=== PATIENT | female | born 1950 | race Caucasian/White ===

== ENCOUNTER → 2018-03-02 11:10 | Outpatient (CLI) | payer OTHER, SELFPAY ==
[2018-03-02 12:39] LABS: Add Manual Diff / Slide Review NO; Basophils Percent Auto 0.8 % (0-2); Eosinophils Percent Auto 2.1 % (2-4); Hematocrit 39.4 % (36-46); Hemoglobin 13.5 g/dL (12.0-16.0); Lymphocytes Percent Auto 35.5 % (25-40); Mean Corpuscular HGB Conc 34.3 % (30-36); Mean Corpuscular Hemoglobin 29.8 PG (26-34); Monocytes Percent Auto 8.6 % (3-14); Neutrophils Absolute Auto 2300 /uL (3000-5900); Platelet Count 186 X10^3/uL (150-400); Red Blood Cell Count 4.53 X10^6/uL (4.0-5.2); Red Cell Distribution Width 13.1 % (11.6-14.8); White Blood Cell Count 4.4 X10^3/uL (4.5-11.0)
[2018-03-02 13:01] LABS: Alanine Aminotransferase 26 IU/L (9-52); Albumin 4.3 g/dL (3.5-5.0); Albumin Globulin Ratio 1.6 (1.0-2.8); Alkaline Phosphatase 147 U/L (38-126); Aspartate Aminotransferase 28 IU/L (14-36); Bilirubin Total 0.5 mg/dL (0.2-1.3); Blood Urea Nitrogen 14 mg/dL (7-17); Calcium 9.4 mg/dL (8.4-10.2); Carbon Dioxide 29 mmol/L (22-32); Chloride 102 mmol/L (98-107); Cholesterol 193 mg/dL (140-199); Estimated Glomerular Filt Rate > 60.0 mL/min (>60); Globulin 2.7 g/dL (1.7-4.1); Glucose 93 mg/dL (80-110); HDL Cholesterol 84 mg/dL (40-60); HEMOLYSIS < 15 (0-50); LDL Cholesterol Calculated 99 mg/dL (<100); Potassium 4.4 mmol/L (3.4-5.1); Sodium 142 mmol/L (137-145); Triglycerides 52 mg/dL (35-150)
== END ==
PROVIDERS: PCP Family Medicine; Visit Provider Student in an Organized Health Care Education/Training Program
DX: E78.00 Pure hypercholesterolemia, unspecified (principal)
CPT/HCPCS: 36415; 80053; 80061; 85025

== ENCOUNTER → 2018-05-21 14:00 | Outpatient (CLI) | payer OTHER, SELFPAY ==
--- NOTE | 2018-05-21 | DI.MG.S_ITS ---
BILATERAL DIGITAL DIAGNOSTIC MAMMOGRAM 3D/2D: 05/21/2018 CLINICAL: Left lump. Comparison is made [facility] There are scattered fibroglandular elements in both breasts. There are two triangular markers overlying the upper outer left breast at the site of the reported palpable concerns, one at posterior depth and the other at anterior to middle depth. Underlying the posterior depth triangular marker is an approximately 1 cm oval indistinct mass and underlying the anterior to middle depth is an approximately 2 cm irregular spiculated mass. IMPRESSION: INCOMPLETE: NEEDS ADDITIONAL IMAGING EVALUATION Two masses identified in the upper outer left breast as described above. A targeted ultrasound with left axillary ultrasound is recommended for further evaluation. This exam was interpreted at Station ID: [id number]. NOTE: For mammograms, a report in lay terms will be sent to the patient. Approximately 15% of breast malignancies will not be visualized mammographically. In the management of a palpable breast mass, a negative mammogram must not discourage biopsy of a clinically suspicious lesion. Electronically Signed By: Ken Tineo M.D. ecl/:05/21/2018 14:59:44 letter sent: Additional Imaging Needed ACR BI-RADS Category 0: Incomplete [id number]
--- NOTE | 2018-05-21 | DI.US.S_ITS ---
LIMITED ULTRASOUND OF LEFT BREAST AND AXILLA: 05/21/2018 CLINICAL: Patient returns for additional imaging over a suspected mass in the left breast. Comparison is made to exams dated: 05/21/2018 mammogram and 09/20/2009 mammogram - [facility]. Real-time and Doppler ultrasound of the left breast upper outer quadrant and axilla regions were performed. Mccurdy scale images of the real-time examination were reviewed. There is 1.8 cm x 1.1 cm x 2 cm irregular mass with an indistinct margin in the left breast at 1 o'clock 3 cm from the nipple. This irregular mass is hypoechoic with posterior acoustic shadowing. This correlates with mammography findings. Color flow imaging demonstrates that there is increased vascularity. There also is 1.1 cm x 0.7 cm x 1 cm irregular mass with an indistinct margin in the left breast at 2 o'clock 7 cm from the nipple. This irregular mass is hypoechoic with posterior acoustic shadowing. This correlates with mammography findings. Color flow imaging demonstrates that there is vascularity present. Additionally, there is 1.1 cm x 1 cm x 0.9 cm oval mass with a circumscribed margin in the left axilla. This oval mass is hypoechoic. Color flow imaging demonstrates that there is increased vascularity. IMPRESSION: HIGHLY SUGGESTIVE OF MALIGNANCY 1) The 1.8 cm x 1.1 cm x 2 cm irregular mass in the left breast at 1 o'clock is highly suggestive of malignancy. An ultrasound guided biopsy is recommended. 2) The 1.1 cm x 0.7 cm x 1 cm irregular mass in the left breast at 2 o'clock is highly suggestive of malignancy. An ultrasound guided biopsy is recommended. 3) The 1.1 cm x 1 cm x 0.9 cm oval mass in the left axilla is highly suggestive of malignancy. An ultrasound guided biopsy is recommended. These results and recommendations were discussed with the patient at the time of the exam by the [facility] Radiologist Dr. Abiodun Meza in person. This exam was interpreted at Station ID: [id number]. Electronically Signed By: Ken Tineo M.D. ecl/:05/21/2018 15:41:32 letter sent: Biopsy Required Ultrasound BI-RADS: 5 Highly suggestive of malignancy
== END ==
PROVIDERS: PCP Student in an Organized Health Care Education/Training Program; Visit Provider Student in an Organized Health Care Education/Training Program
DX: R92.8 Other abnormal and inconclusive findings on diagnostic imaging of breast (principal); N63.21 Unspecified lump in the left breast, upper outer quadrant; N63.32 Unspecified lump in axillary tail of the left breast
CPT/HCPCS: 76642; 77066; G0279

== ENCOUNTER → 2018-06-16 13:14 | Outpatient (CLI) | payer OTHER, SELFPAY ==
--- NOTE | 2018-06-16 | DI.US.S_ITS ---
ULTRASOUND GUIDED BIOPSY LEFT BREAST WITH MARKING DEVICE INSERTED AND POST MAMMOGRAPHIC IMAGIN06/16/2018 CLINICAL: Left axillary node biopsy. PATIENT CONSENT: Risks (minor bleeding, infection, vasovagal reaction and repeat procedure), benefits and alternatives were explained to the patient and written informed consent was obtained. Correlation is made to exams dated: 05/21/2018 ultrasound, 05/21/2018 mammogram, and 09/20/2009 mammogram - [facility]. An ultrasound guided biopsy using real-time ultrasound was performed for the concerning 1.2 cm x 3.5 cm x 2.4 cm circumscribed lobulated lymph node located in the left axillary tail. The skin was prepped in the usual manner. Local anesthetic was administered to the access site. A skin arlette was made in the breast. The abnormality was approached from the caudocranial aspect. An 18 gauge biopsy needle was placed adjacent to the abnormality through an introducer device under ultrasound guidance. Once the needle was documented to be in the correct location, three specimens were obtained using 18G Temno. The patient received additional local anesthetic during the procedure. A Vision marker clip was inserted into the biopsy cavity. A sterile dressing was applied to the access site. Post procedure mammographic imaging demonstrates the location device at the targeted area. The specimens were sent to the laboratory for pathological analysis. IMPRESSION: ULTRASOUND GUIDED BIOPSY MALIGNANT Ultrasound guided biopsy of the 1.2 cm x 3.5 cm x 2.4 cm lymph node in the left axillary tail/low axilla was successful. This mass appears to represent a tumor infiltrated lymphnode, and is bilobed and larger than the rounded 1 cm node previously found by US and mammogram. It is higher in position, and could not be located by the post biopsy mammogram due to patient's thin body habitus. This larger lesion was chosen because it clearly is axillary in position. The position of the mass and its internal Vision marker was confirmed by US again after it could not be seen by mammogram. CT scanning would allow its visualization related to the other left breast masses in the upper outer quadrant. Biopsy results are consistent with metastatic invasive ductal carcinoma. This is concordant with ultrasound and mammographic findings. Surgical and oncological consultation recommended. This exam was interpreted at Station ID: [id number]. Kain Decker M.D. [facility],popeye/:06/23/2018 10:14:25
--- NOTE | 2018-06-16 | DI.US.S_ITS ---
MULTIPLE ULTRASOUND GUIDED BIOPSIES LEFT BREAST USING VACUUM DEVICE WITH MARKING DEVICES INSERTED AND POST MAMMOGRAPHIC IMAGIN06/16/2018 CLINICAL: Left breast masses x 2: #1 2:00 position 7cm fn #2 1:00 position 3cm fn. PATIENT CONSENT: Risks (minor bleeding, infection, vasovagal reaction and repeat procedure), benefits and alternatives were explained to the patient and written informed consent was obtained. Correlation is made to exams dated: 05/21/2018 ultrasound, 05/21/2018 mammogram, and 09/20/2009 mammogram - [facility]. An ultrasound guided biopsy using real-time ultrasound was performed for the concerning 1 cm x 1.1 cm x 0.6 cm spiculated irregular shaped solid mass located in the left breast at 2 o'clock anterior depth. This was described on the previous mammography and ultrasound reports. The skin was prepped in the usual manner. Local anesthetic was administered to the access site. A skin arlette was made in the breast. The abnormality was approached from the lateral aspect. A 13 gauge biopsy needle was placed adjacent to the abnormality through an introducer device under ultrasound guidance. Once the needle was documented to be in the correct location, 4 specimens were obtained using the Mammotome biopsy system. The patient received additional local anesthetic during the procedure. A single Celero clip was inserted into the biopsy cavity. A skin closure strip was applied to the access site. Post procedure mammographic imaging demonstrates the location device at the targeted area and partial removal of the abnormality. The specimen was sent to the laboratory for pathological analysis as #1. A second ultrasound guided biopsy using real-time ultrasound was performed for the concerning 2 cm x 1.8 cm x 1.1 cm spiculated irregular shaped mass located in the left breast at 1 o'clock middle depth. This was described on the previous mammography and ultrasound reports. The skin was prepped in the usual manner. Local anesthetic was administered to the access site. A skin arlette was made in the breast. The abnormality was approached from the lateral aspect. A 13 gauge biopsy needle was placed adjacent to the abnormality through an introducer device under ultrasound guidance. Once the needle was documented to be in the correct location, four specimens were obtained using the Mammotome biopsy system. The patient received additional local anesthetic during the procedure. A Vision clip was inserted into the biopsy cavity. A skin closure strip was applied to the access site. Post procedure mammographic imaging demonstrates partial removal of the abnormality and the Vision clip to be in expected position. The specimens were sent to the laboratory for pathological analysis as #2. IMPRESSION: ULTRASOUND GUIDED BIOPSY MALIGNANT An approach to biopsy the two lesions from the lateral left breast was chosen with use of a single introducer needle through which the two mammotome 13G vacuum assist devices could be passed, sequentially. The first biopsy was of the more lateral lesion, labeled as #1, and this is the smaller of the two, receiving the Celero marker. The second deeper biopsy was more superior and medial, larger, and received the Vision marker. Ultrasound guided biopsy #1 of the 1 cm x 1.1 cm x 0.6 cm solid mass in the left breast at 2 o'clock anterior depth was performed, and placement of the single Celero marker was successful. 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 Findings are concordant with ultrasound and mammography. Ultrasound guided biopsy #2 of the 2 cm x 1.8 cm x 1.1 cm mass in the left breast at 1 o'clock middle depth was successful, with placement of the Vision marker clip. 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 Findings are concordant with ultrasound and mammography. This exam was interpreted at Station ID: [id number]. Kain davila,popeye/:06/23/2018 10:18:13
--- NOTE | 2018-06-16 | DI.MG.S_ITS ---
UNILATERAL LEFT DIGITAL DIAGNOSTIC MAMMOGRAM POST-NEEDLE BIOPSY: 06/16/2018 CLINICAL: Post clip placement. Comparison is made to exams dated: 05/21/2018 ultrasound, 05/21/2018 mammogram, and 09/20/2009 mammogram - [facility]. There are scattered fibroglandular elements in left breast. The post biopsy marker for the more lateral smaller 2:00 position biopsied mass termed #1 is a Celero type, and is in expected potition. the post biopsy marker for the more medial higher larger 1: position biopsied mass termed #2 is a Vision type, and is in expected position. The post biopsy marker for the large axillary malignant appearing lymphnode is a Vision type, and could not be included in the mammogram due to the patient's body habitus, and its high position. The axillary Vision marker position was confirmed again by US after this mammogram was performed. IMPRESSION: POST PROCEDURE MAMMOGRAM FOR MARKER PLACEMENT Await biopsy results. There is a 1 cm rounded mass remaining above the biopsy sites at the RUOQ for the two biopsy markers in the left breast tissue, but this was not biopsied given the larger and more concerning mass within the left axilla detailed elsewhere. This exam was interpreted at Station ID: [id number]. NOTE: For mammograms, a report in lay terms will be sent to the patient. Approximately 15% of breast malignancies will not be visualized mammographically. In the management of a palpable breast mass, a negative mammogram must not discourage biopsy of a clinically suspicious lesion. Electronically Signed By: Kain Sawant M.D. /:06/16/2018 17:59:11 ACR BI-RADS Category Post-procedure mammogram for marker placement
--- NOTE | 2018-06-16 | PATH_ITS ---
[facility] Accession Number: [id number] . 01 Material submitted: . PART A: LT BREAST MASS 2:00 PART B: LT BREAST MASS 1:00 PART C: LEFT AXILLARY LYMPH NODE . 01 Clinical history: . A: 7CM FN B: 3CM FN . 02 Diagnosis: A) Left Breast Mass, 2:00, 7 cmfn, needle core biopsy: Invasive ductal carcinoma with the following features: 1. Tia grade: 3 (poor tuble formation, high nuclear grade, intermediate mitoses). 2. Greatest linear extent: 7 mm. 3. Ductal carcinoma in situ: Present, solid. 4. Microcalcifications: Present, associated with benign parenchyma. 5. Lymph-vascular invasion: Not identified. . CAP BREAST BIOMARKER REPORTING TEMPLATE: . Estrogen Receptor (SP1): Positive, 70%, intermediate intensity. Progesterone Receptor (1E2): Positive, 50%, strong intensity. HER2 (4B5): Negative (1+). . Cold Ischemia and Fixation Times: Meets requirements in the latest version of the ASCO/CAP guidelines. Testing performed on Block Number: A1 . B) Left Breast Mass, 1:00, 3 cmfn, needle core biopsy: Invasive ductal carcinoma with the following features: 1. Tia grade: 3 (poor tuble formation, high nuclear grade, intermediate mitoses). 2. Greatest linear extent: 2 mm. 3. Ductal carcinoma in situ: Present, solid. 4. Microcalcifications: Not identified. 5. Lymph-vascular invasion: Not identified. 6. Prognostic markers performed on Part A. . C) Left Axillary Lymph Node, Needle Core Biopsy: Fragments of lymph node positive for metastatic ductal carcinoma. [facility] . 02 Comment: Prognostic markers are performed on Part A. If clinically indicated, prognostic markers can be performed on other parts upon request. . The finding of carcinoma was reported to to Dr. Guerrero via her MA Tea by Dr. Avni Singh on 06/17/2018 at 4 PM. As part of routine quality control supervisor, Dr. Powers has reviewed the H/E slides from this case and agrees with the diagnosis of high-grade ductal carcinoma. . 02 Electronically signed: . Avni Singh MD, PhD, Pathologist NPI- [id number] . 01 Gross description: . Received three formalin-filled containers each labeled with the patient's name. . A. In a container labeled #1 2, o'clock, 7 cm FN, the specimen is received with plastic filter in container, sample loose in container, and consists of multiple pieces of light yellow-roque tissue and blood, which aggregate to 1.0 x 1.0 x 0.2 cm. The specimen is filtered and entirely submitted in cassette A. B. In a container labeled #2 1 o'clock, 3 cm FN, sample received with plastic filter in container, sample loose in container, the specimen consists of multiple portions of tissue and blood, which aggregate to 1.0 x 0.3 x 0.3 cm. The specimen is filtered, wrapped and entirely submitted in cassette B. C. In a container labeled #3 Axilla are three 0.1 cm in diameter cylindrical shaped portions of tissue, which range in length from 0.5 to 0.8 cm. The specimen is entirely submitted in cassette C. Collection date 06/16/2018. Collection time Part A 2:15 p.m., Part B 2:25 p.m., Part C 2:03 p.m. Total fixation time 12 hours up to 24. ([facility]:[id number]) /[facility] . 02 Microscopic: . A) Sections are of breast parenchyma infiltrated by a proliferation of epitheliod cells with a diffuse and nested growth pattern, consistent with carcinoma. The carcinoma cells are positive of MANGO-3 immunoreactivity, cosistent with breast primary ductal carcinoma. The carcinoma cells are positive for estrogen receptor and estrogen receptor expression, 70% intermediate and 50% strong, respectively. The carcinoma is negative (1+) for Her2 protein expression by immunohistochemistry. All control stains show appropriate activity. . * This test was developed and its performance characteristics determined by [facility]. It has not been cleared or approved by the U.S. Food and Drug Administration. The FDA has determined that such clearance or approval is not necessary. This test is used for clinical purposes. It should not be regarded as investigational or for research. . 02 Pathologist provided ICD-10: C50.412 . 02 CPT . 564823, 356726, 263766, N35278, N32592 Performed at: 01 [facility] [address] [place] [address] [id number] MD Jovi Nichols MD Phone: [phone] Performed at: 02 [facility] [id number] [place] [address] [id number] MD Jaja Powers MD Phone: [phone]
== END ==
PROVIDERS: PCP Student in an Organized Health Care Education/Training Program; Visit Provider Student in an Organized Health Care Education/Training Program
DX: C50.412 Malignant neoplasm of upper-outer quadrant of left female breast (principal); C77.3 Secondary and unspecified malignant neoplasm of axilla and upper limb lymph nodes; Z17.0 Estrogen receptor positive status [ER+]
CPT/HCPCS: 19083; 19084; 38505; 76942; 77065

== ENCOUNTER → 2018-06-24 12:27 | Outpatient (CLI) | payer OTHER, SELFPAY ==
[2018-06-24 12:58] LABS: Add Manual Diff / Slide Review NO; Basophils Absolute Auto 0 /uL (0-100); Basophils Percent Auto 0.3 % (0-2); Eosinophils Absolute Auto 0 /uL (0-450); Eosinophils Percent Auto 0.1 % (2-4); Hematocrit 38.7 % (36-46); Hemoglobin 13.1 g/dL (12.0-16.0); Lymphocytes Absolute Auto 1500 /uL (1100-4500); Lymphocytes Percent Auto 19.5 % (25-40); Mean Corpuscular HGB Conc 33.8 % (30-36); Mean Corpuscular Hemoglobin 29.6 PG (26-34); Mean Corpuscular Volume 87.5 fL (80-100); Monocytes Absolute Auto 500 /uL (0-900); Monocytes Percent Auto 6.6 % (3-14); Neutrophils Absolute Auto 5500 /uL (1500-7000); Neutrophils Percent Auto 73.5 % (50-75); Platelet Count 220 X10^3/uL (150-400); Red Blood Cell Count 4.42 X10^6/uL (4.0-5.2); Red Cell Distribution Width 13.3 % (11.6-14.8); White Blood Cell Count 7.5 X10^3/uL (4.5-11.0)
[2018-06-24 14:11] LABS: Alanine Aminotransferase 32 IU/L (9-52); Albumin 4.3 g/dL (3.5-5.0); Albumin Globulin Ratio 1.6 (1.0-2.8); Alkaline Phosphatase 160 U/L (38-126); Aspartate Aminotransferase 23 IU/L (14-36); BUN Creatinine Ratio 21.4 (6-22); Bilirubin Total 0.4 mg/dL (0.2-1.3); Blood Urea Nitrogen 15 mg/dL (7-17); Calcium 9.4 mg/dL (8.4-10.2); Carbon Dioxide 24 mmol/L (22-32); Chloride 102 mmol/L (98-107); Estimated Glomerular Filt Rate > 60.0 mL/min (>60); Globulin 2.7 g/dL (1.7-4.1); Glucose 82 mg/dL (80-110); HEMOLYSIS < 15 (0-50); Potassium 4.1 mmol/L (3.4-5.1); Sodium 138 mmol/L (137-145)
[2018-06-24 14:41] LABS: Cancer Antigen 125 8 U/mL (0-35); Carcinoembryonic Antigen 1.3 ng/mL (0.1-3.0)
[2018-06-26 20:36] LABS: Cancer Antigen 27.29 20 U/mL (< 38)
== END ==
PROVIDERS: PCP Student in an Organized Health Care Education/Training Program; Visit Provider Student in an Organized Health Care Education/Training Program
DX: C50.912 Malignant neoplasm of unspecified site of left female breast (principal); C77.3 Secondary and unspecified malignant neoplasm of axilla and upper limb lymph nodes
CPT/HCPCS: 36415; 80053; 82378; 85025; 86300; 86304

== ENCOUNTER → 2020-09-06 17:05 | Outpatient (CLI) | payer MEDICARE, SELFPAY ==
[2020-09-06] MEDS: COVID-19 VACC #2, MRNA(MOD) 100 MCG/0.5 ML VIAL IM (17:16)
== END ==
PROVIDERS: PCP Family Medicine; Visit Provider Internal Medicine
DX: Z23 Encounter for immunization (principal)
CPT/HCPCS: 0012A; 91301

== ENCOUNTER → 2020-10-06 10:10 | Outpatient (CLI) | payer OTHER, SELFPAY ==
[2020-10-06 10:53] LABS: COVID19 -Nasal RAPID Negative (Negative)
== END ==
PROVIDERS: PCP Family Medicine; Visit Provider Specialist
DX: Z20.822 Contact with and (suspected) exposure to COVID-19 (principal)
CPT/HCPCS: 87635; C9803

== ENCOUNTER 2020-10-09 08:55 | Day surgery (SDC) | payer OTHER, SELFPAY ==
[2020-10-09] VITALS (10 sets, daily range): BP systolic 90–145; BP diastolic 43–81; PULSE 64–103; RESP 10–14; TEMP 36.3–37.3; O2SAT 98–100; BMI 23.1
[2020-10-09] MEDS: LACTATED RINGERS 1,000 ML 200 ML IV (09:32)
--- NOTE | 2020-10-09 10:06 | P.HP_ITS ---
History of Present Illness History of Present Illness Date Patient Seen: 10/09/20 Time Patient Seen: 10:06 Chief complaint: SDC Narrative: The patient presents for colorectal sreening. Most recent colonoscopy was normal 2013. Her father had colon cancer, she has a personal history of colonic polyps.. On further history denies any recent gastrointestinal symptoms. No nausea, vomiting, abdominal pain, loss of appetite, unexplained weight loss, change in bowel habits, diarrhea, constipation, melena, hematochezia, or bright red blood per rectum. Patient History Medical History Breast cancer (~05/2018) Chicken pox (~1955) Colon polyp Measles (~1957) Mumps (~1954) Vision disorder Surgical History Anesthesia History of bilateral mastectomy (~07/14/18) Status post colonoscopy (04/27/14) Status post tubal ligation Family & Social History Family History Child Eleonora's disease Child Seizures Thyroiditis Hypothyroid Sister Hypertension Diabetes mellitus Father Colon cancer Grandfather Cancer FH: prostate cancer Grandmother Hypertension History of heart disease Social History: household members spouse Tobacco & Substance use: Smoking Status Never smoker alcohol intake current alcohol intake frequency a few times a month Substance Use Type does not use Meds Home Medications and Allergies Home Medications Medication Instructions Recorded Confirmed Type tamoxifen 20 mg tablet 20 mg PO DAILY 09/20/20 10/09/20 History Lactobac 40-Bifido 3-S.thermop 1 cap PO DAILY 10/09/20 10/09/20 History [Probiotic] alpha lipoic acid 600 mg PO DAILY 10/09/20 10/09/20 History cholecalciferol (vitamin D3) 125 mcg PO DAILY 10/09/20 10/09/20 History [Vitamin D3] mecobalamin (vitamin B12) [B12 1,000 mcg PO DAILY 10/09/20 10/09/20 History Active] omega 2-kvj-hbm-fish oil 1 cap PO DAILY 10/09/20 10/09/20 History vitamin B complex [B Complex] 1 cap PO DAILY 10/09/20 10/09/20 History Allergies Allergy/AdvReac Type Severity Reaction Status Date / Time No Known Drug Allergies Allergy Verified 10/09/20 09:10 Review of Systems Review of Systems ROS: Yes All systems reviewed with the patient and are negative except as otherwise documented Exam Vital Signs (past 8 hours): - 10/09/20 09:12 Temperature 99.1 F Pulse Rate 103 H Respiratory Rate 13 Blood Pressure 145/81 H Pulse Oximetry 100 Oxygen Delivery Method Room Air Narrative Exam Narrative: GENERAL-well developed adult woman, no acute distress HEENT-no scleral icterus, hearing intact NECK-no JVD, trachea midline CVS- regular rate, no peripheral edema RESP-unlabored respiratory effort, no audible wheezing GI-soft, nontender nondistended MSK-no cyanosis or clubbing, extremities without deformity SKIN-warm, dry NEURO-alert and oriented, no focal deficits PYSCH-Appropriate mood and affect Assessment & Plan Assessment & Plan narrative: The patient requires colorectal screening and colonoscopy is recommended. Technical details were discussed. Risks, benefits, alternatives explained. Risks including but not limited to myocardial infarction, aspiration, bleeding, pain, missed lesion, incomplete examination, need for further radiographic studies, colonic perforation, and need for major a bdominal surgery were discussed. All questions were answered to their satisfaction, and they are in agreement with this plan.
[2020-10-09] MEDS: MIDAZOLAM 5 MG/5 ML VIAL IV (10:19)
[2020-10-09] MEDS: fentaNYL 250 MCG/5 ML INJ IV (10:19)
--- NOTE | 2020-10-09 10:46 | PM.OP.ENDO ---
Operative Date/Time/Diagnoses Date of procedure: 10/09/20 Time of procedure: 10:46 Pre-op diagnosis: family history of colon cancer Post-op diagnosis: same Procedure & Clinicians Study performed: Colonoscopy Same procedure as scheduled: Yes Indications: Family history of colon cancer Surgeon: Tonio Quintanilla Procedure Notes Procedure in detail: Medications: Conscious sedation using 5 mg IV midazolam and 200 mcg IV of fentanyl The history and physical was performed/updated and the patient is ASA class is 2. The procedure was discussed in detail with the patient. Potential risks complications including infection, bleeding, missed diagnosis, perforation, need for surgery, and were explained. Their questions were answered and informed consent was obtained. Patient was brought to the procedure room and placed standard monitoring equipment. The patient's vital signs were monitored continuously throughout the entire procedure. Prior to starting time-out was performed. The patient was placed in the left lateral recumbent position. Procedural sedation was administered. Examination began with a thorough inspection of the perianal area there was no evidence of fissures, fistulae, external hemorrhoids or cutaneous malignancy. The colonoscopy scope was then placed into the anal canal and was advanced to the cecum, which was identified by the ileocecal valve, the appendiceal orifice and the confluence of the taenia. The scope was then slowly withdrawn examining colon thoroughly in all directions, irrigating it of any residual stool. 1. Normal healthy colon 2. No masses or polyps 3. Grade 1 internal hemorrhoids The patient tolerated the procedure well. They will be discharged once criteria are met. The prep was of good/excellent quality. The withdrawl time was 10 minutes. The sedation time was 32 minutes. Specimen(s): none sent Complications: none Impression: Normal colonoscopy Post-procedure Recommendations: Colonscopy in 5 years Disposition: same day surgery
--- NOTE | 2020-10-09 11:46 | SUR.PHASEII ---
awake/drowsy, denies any discomfort, light-headedness or dizziness, nausea. Prefers to rest a few minutes before preparing to go home.
== END 2020-10-09 11:05 | disposition home or self-care (01) ==
PROVIDERS: PCP Family Medicine; Referring Provider Surgery; Visit Provider Surgery
PROC: 0DJD8ZZ Inspection of Lower Intestinal Tract, Via Natural or Artificial Opening Endoscopic (ICD-10-PCS; CPT 45378; principal; 2020-10-09 10:00)
DX: Z12.11 Encounter for screening for malignant neoplasm of colon (principal); Z86.010 Personal history of colon polyps; Z80.0 Family history of malignant neoplasm of digestive organs; K64.0 First degree hemorrhoids
CPT/HCPCS: G0105; 99152; 99153; J2250; J3010

== ENCOUNTER 2024-11-14 19:58 | Emergency (ER) | payer OTHER, SELFPAY ==
[2024-11-14 20:04] VITALS: BP 161/78; PULSE 89; RESP 17; TEMP 36.8; O2SAT 99; BMI 24.7
--- NOTE | 2024-11-14 22:41 | ED.ANIMALBIT ---
HPI - Animal Bite General Chief Complaint: Animal Bite Stated Complaint: animal bite, cat Time Seen by Provider: 11/14/24 22:41 Source: patient Mode of arrival: Ambulatory History of Present Illness HPI narrative: 74-year-old female no significant past medical history presenting from home for evaluation of bite to right hand, she states that she intervened we cleaned it CT and not fight and was bit on her right hand. Stating that she is having swelling to her 1st knuckle, not up-to-date tetanus. She states that the cat was hers and the dog was her daughters, states that they are up-to-date on their vaccination. She denies any other symptoms at this time. Related Data Home Medications ?Medication ?Instructions ?Recorded ?Confirmed tamoxifen 20 mg tablet 20 mg PO DAILY 09/20/20 11/23/22 Lactobacillus 40-Bifidobact 1 cap PO DAILY 10/09/20 11/23/22 3-S.thermophilus 100 billion cell capsule (Probiotic) alpha lipoic acid 600 mg capsule 600 mg PO DAILY 10/09/20 11/23/22 cholecalciferol (vitamin D3) 125 125 mcg PO DAILY 10/09/20 11/23/22 mcg (5,000 unit) tablet (Vitamin D3) mecobalamin (vitamin B12) 1,000 1,000 mcg PO DAILY 10/09/20 11/23/22 mcg chewable tablet (B12 Active) omega 3 600 mg-dha 216 mg-epa 324 1 cap PO DAILY 10/09/20 11/23/22 mg-fish oil 1,200 mg capsule,del rel vitamin B complex 1 cap PO DAILY 10/09/20 11/23/22 Previous Rx's ?Medication ?Instructions ?Recorded benzonatate 100 mg capsule 100 mg PO BID PRN cough #20 caps 11/23/22 amoxicillin 875 mg-potassium 1 tab PO BID 10 days #20 tabs 11/14/24 clavulanate 125 mg tablet Allergies Allergy/AdvReac Type Severity Reaction Status Date / Time No Known Drug Allergies Allergy Verified 11/14/24 20:03 Review of Systems Review of Systems Narrative: General: Denies fever, chills, weight loss HEENT: Denies headache, eye drainage, eye irritation, head trauma, sore throat, voice change Cardiovascular: Denies any chest pain, palpitations, tachycardia Respiratory: Denies any shortness of breath, cough, wheeze, stridor GI/: Denies any abdominal pain, nausea, vomiting, diarrhea, bright red blood per rectum, melanotic stools, urinary frequency, urinary retention, dysuria, hematuria MSK: Positive cat bite to right hand Skin: Denies any rashes, lesions, discoloration Neuro: Denies any headache, lightheadedness, dizziness, fainting, weakness Psych: Denies SI/HI Patient History Medical History Breast cancer (~05/2018) Chicken pox (~1955) Colon polyp Measles (~1957) Mumps (~1954) Vision disorder Surgical History Anesthesia History of bilateral mastectomy (~07/14/18) Status post colonoscopy (04/27/14) Status post tubal ligation Family History Child Eleonora's disease Child Seizures Thyroiditis Hypothyroid Sister Hypertension Diabetes mellitus Father Colon cancer Grandfather Cancer FH: prostate cancer Grandmother Hypertension History of heart disease Social History (Updated 11/03/19 @ 14:22 by Nelly Godoy DO) household members: spouse second hand exposure: Yes alcohol intake: current during the past year weight has: remained stable well-balanced diet: daily or most days daily servings fruits/ve or more times/day Type(s) of exercise: walking, regular exercise and yoga frequency: 5-6 times per week alcohol intake frequency: a few times a month Exam Narrative Exam Narrative: General: Cooperative, well-developed, not in acute distress HEENT: Normocephalic, atraumatic, PERRLA, normal sclera, eyelids normal Neck: Active full range of motion, atraumatic Chest: Normal to inspection, negative crepitus, no overlying erythema ecchymosis Respiratory: Normal respiratory effort, not in acute respiratory distress, clear to auscultation bilaterally negative cough, wheeze, tachypnea, rhonchi, rales Cardiology: Regular rate rhythm negative gallop, murmur, rubs GI/: No tenderness to palpation, soft, non rigid, normal to inspection, exam deferred MSK: Full active range of motion in all 4 extremities, atraumatic, neurovascularly intact bilateral upper extremities, there is some mild erythema noted to the posterior aspect of the area between the 1st and 2nd knuckle, there is no streaking, minor tenderness to palpation, no crepitus. Skin: No rashes or lesions noted Neuro: Alert awake oriented x3, moves all 4 extremities spontaneously, cranial nerves intact, able to answer all questions appropriately follows commands appropriately Psych: Cooperative, negative suicidal or homicidal ideations Initial Vital Signs Initial Vital Signs: Vital Signs Temperature 98.3 F 11/14/24 20:04 Pulse Rate 89 11/14/24 20:04 Respiratory Rate 17 11/14/24 20:04 Blood Pressure 161/78 H 11/14/24 20:04 Pulse Oximetry 99 11/14/24 20:04 Oxygen Delivery Method Room Air 11/14/24 20:04 Course Vital Signs Vital signs: Vital Signs - 8 hr 11/14/24 20:04 Temperature 98.3 F Pulse Rate 89 Respiratory Rate 17 Blood Pressure 161/78 H Pulse Oximetry 99 Oxygen Delivery Method Room Air MDM - Animal Bite Differential Diagnosis Differential diagnosis: Likely bite by animal, cat bite, other and rabies contact MDM Narrative Medical decision making narrative: Patient is a 74-year-old female without any significant past medical history presenting for cat bite to her right hand. She states that she was breaking up a fight between a cat and a dog. States that this happened earlier today the CT was hurts with the dog was her daughter's she states that she is not up-to-date to her tetanus. She states that the animals vaccines are up-to-date. On exam here some mild erythema and swelling noted to the posterior aspect between the 2nd and 3rd finger but no overlying streaking, neurovascularly intact. Patient will be discharged home with oral antibiotics tetanus was updated here she was instructed to follow up primary care outpatient setting she verbalized understanding of this and agrees to being discharged home with outpatient follow up Discharge Plan Departure Patient Disposition: Home Clinical Impression: Cat bite Instructions: DI for Cat Bite Activity Restrictions/Additional Instructions: Please follow up with the primary care doctor Please read the discharge instructions sheet carefully and bring all papers to all doctor follow-up visits, as it may contain information that your doctor may want to see. Disease processes change and evolve, if your symptoms worsen or if you develop any new symptoms that are concerning to you please return for evaluation. Your evaluation today does not show any evidence of any life-threatening/serious illnesses requiring admission to the hospital or surgery. Please follow-up with your doctor for re-evaluation in approximately 1 day. Seek immediate medical attention for any worrisome symptoms. *If you do not have a primary care provider please contact the [facility] Resource line at [phone]. They will ask some questions about your medical history and help get you set up with a doctor in the community. Prescriptions: New amoxicillin-pot clavulanate 875-125 mg tablet 1 tab PO BID 10 Days Qty: 20 0RF No Action benzonatate 100 mg capsule 100 mg PO BID PRN (Reason: cough) Qty: 20 0RF tamoxifen 20 mg tablet 20 mg PO DAILY Probiotic 100 billion cell Capsule 1 cap PO DAILY vitamin B complex Capsule 1 cap PO DAILY B12 Active 1,000 mcg Tablet,Chewable 1,000 mcg PO DAILY alpha lipoic acid 600 mg Capsule 600 mg PO DAILY omega 8-vwp-emp-fish oil 600 mg-216 mg- 324 mg-1,200 mg Capsule,Delayed Release(Dr/Ec) 1 cap PO DAILY cholecalciferol (vitamin D3) [Vitamin D3] 125 mcg (5,000 unit) Tablet 125 mcg PO DAILY Referrals: Nelly Godoy DO [Primary Care Provider, Family Practice] Stand Alone Forms: Patient Portal/API
[2024-11-14] MEDS: AMOXICILLIN/CLAV 875/125 MG 1 TAB PO (22:52)
[2024-11-14] MEDS: TET,DIPH,PERTUSS(ACELL),VAC/PF 0.5 ML SYRINGE IM (22:52)
[2024-11-14 22:58] VITALS: BP 156/77; PULSE 81; RESP 16; O2SAT 98
== END 2024-11-14 22:59 | disposition home or self-care (01) ==
PROVIDERS: Emergency Provider Student in an Organized Health Care Education/Training Program; PCP Family Medicine
DX: S61.451A Open bite of right hand, initial encounter (principal); W55.01XA Bitten by cat, initial encounter; Z23 Encounter for immunization
CPT/HCPCS: 90471; 99283; 90715